=== PATIENT | female | born 1970 | race Caucasian/White ===

== ENCOUNTER → 2019-12-20 15:06 | Outpatient (BNVA) | payer OTHER, SELFPAY | PROVIDERS: PCP Family Medicine; Referring Provider Family Medicine; Visit Provider Internal Medicine Gastroenterology | DX: R10.13 Epigastric pain (principal) | CPT/HCPCS: 99213 ==

== ENCOUNTER 2020-01-11 08:23 | Outpatient (REF) | payer OTHER, SELFPAY ==
--- NOTE | 2020-01-11 08:29 | US_ITS ---
EXAMINATION: US ABDOMEN COMPLETE CLINICAL INFORMATION: Epigastric pain. COMPARISON: None TECHNIQUE: Real-time imaging of the abdominal viscera. Technically difficult study secondary to bowel gas. FINDINGS: PANCREAS: Obscured by bowel gas. ABDOMINAL AORTA: The proximal and distal segments are normal in caliber. Mid aorta is obscured by bowel gas. INFERIOR VENA CAVA: Visualized portions are normal. LIVER: Diffuse increased echogenicity. Coarsening of the echotexture. The liver is normal in size. The liver contour is normal. No focal hepatic lesion. There is no intrahepatic biliary duct dilatation seen. GALLBLADDER: Normal. The gallbladder is physiologically distended without evidence of stones, sludge, polyps, wall thickening or pericholecystic fluid. COMMON BILE DUCT: Normal in caliber measuring 0.6 cm in diameter. RIGHT KIDNEY: Normal. No hydronephrosis. No renal calculi or focal parenchymal lesions. The kidney measures 10.8 cm in maximum dimension. LEFT KIDNEY: Normal. No hydronephrosis. No renal calculi or focal parenchymal lesions. The kidney measures 10.7 cm in maximum dimension. SPLEEN: Normal. The spleen measures 10.3 cm in maximum dimension. FREE FLUID: None. US/US abdomen complete IMPRESSION: 1. There is generalized increase in hepatic echotexture, consistent with fatty infiltration or hepatocellular disease. Please correlate clinically. No focal hepatic mass or intrahepatic biliary duct dilatation is seen. 2. Pancreas is obscured by bowel gas.
== END 2020-01-11 08:24 | disposition home or self-care (01) ==
LOC: HO.US 08:23
PROVIDERS: PCP Family Medicine; Visit Provider Internal Medicine Gastroenterology
DX: R10.13 Epigastric pain (principal)
CPT/HCPCS: 76700

== ENCOUNTER 2020-02-08 11:29 | Day surgery (SDC) | payer OTHER, SELFPAY ==
[2020-02-03 10:11] VITALS: BMI 21.9
--- NOTE | 2020-02-07 09:52 | P.CONAN_ITS ---
Documented by User: Veronica Matute 02/07/20 09:53 HPI - Anesthesia Eval Consult details Narrative: 49yo F for Upper Endoscopy [facility] Past Medical History Medical History Hypothyroidism Family History Family History Father Hx of chronic pulmonary heart disease Mother No problems noted. Surgical History Surgical History History of colonoscopy Hx of endoscopy Social History Social History Alcohol intake: current Alcohol intake frequency: holidays/special occasions only Smoking Status: Never smoker Advance Directives: No Advance Directives Information Provided: Yes Advance Directives on File: No Meds Allergies Allergy/AdvReac Type Severity Reaction Status Date / Time No Known Allergies Allergy Verified 12/20/19 15:36 Home Medications Medication Instructions Recorded Confirmed Type levothyroxine 75 mcg tablet 75 mcg PO DAILY 12/20/19 02/03/20 History Exam Exam Date and Time: February 07, 2020 0952 Height,Weight and Vital Signs: Height 5 ft 8 in Weight 65.317 kg Assessment and Plan Assessment Anesthesia Assessment: Chart Reviewed Documented by User: Poonam Phillips CRNA 02/08/20 12:10 [facility] Past Medical History Medical History Hypothyroidism Family History Family History Father Hx of chronic pulmonary heart disease Mother No problems noted. Surgical History Surgical History History of colonoscopy Hx of endoscopy Social History Social History Alcohol intake: current Alcohol intake frequency: holidays/special occasions only Smoking Status: Never smoker Advance Directives: No Advance Directives Information Provided: Yes Advance Directives on File: No Meds Allergies Allergy/AdvReac Type Severity Reaction Status Date / Time No Known Allergies Allergy Verified 12/20/19 15:36 Home Medications Medication Instructions Recorded Confirmed Type levothyroxine 75 mcg tablet 75 mcg PO DAILY 12/20/19 02/03/20 History Exam Exam Date and Time: Vital Signs Temperature 97.6 F 02/08/20 12:01 Pulse Rate 46 L 02/08/20 12:01 Respiratory Rate 16 02/08/20 12:01 Blood Pressure 107/53 L 02/08/20 12:01 Pulse Oximetry 100 02/08/20 12:01 Temperature 97.6 F 02/08/20 12:01 Pulse Rate 46 L 02/08/20 12:01 Respiratory Rate 16 02/08/20 12:01 Blood Pressure 107/53 L 02/08/20 12:01 Pulse Oximetry 100 02/08/20 12:01 Airway Mallampati Class: I TM Dist: >3cm Neck ROM: Full Loose/Missing/Broken Teeth: No Heart: RRR Lungs: CTAB Assessment and Plan Assessment Anesthesia Assessment: Anesthesia Plan Discussed and Chart Reviewed Final Anesthetic Review NPO: Yes ASA Class: II Final Preanesthetic Review: No Changes in Pt Med Stat, Meds/Allgs Chart Reviewed, Consent Obtained/Reviewed and Anes Risks/Benef Reviewed Patient Risk: Low Procedure Risk: Low Anesthetic Plan Anesthetic Plan: MAC:
[2020-02-08 12:01] VITALS: BP 107/53; PULSE 46; RESP 16; TEMP 36.4; O2SAT 100
[2020-02-08] MEDS: Lactated Ringers 1,000 ML 100 ML IVCONT (12:03)
--- NOTE | 2020-02-08 12:13 | HO.ANESPROP2 ---
HPI - Anesthesia Eval Consult details Narrative: 49 yo female patient here for EGD [facility] Past Medical History Medical History Hypothyroidism Family History Family History Father Hx of chronic pulmonary heart disease Mother No problems noted. Family history of problems with anesthesia: No Surgical History Surgical History History of colonoscopy Hx of endoscopy History of Problems with Anesthesia: No (Pulse rate runs low) Social History Social History Alcohol intake: current Alcohol intake frequency: holidays/special occasions only Smoking Status: Never smoker Advance Directives: No Advance Directives Information Provided: Yes Advance Directives on File: No Meds Allergies Allergy/AdvReac Type Severity Reaction Status Date / Time No Known Allergies Allergy Verified 12/20/19 15:36 Home Medications Medication Instructions Recorded Confirmed Type levothyroxine 75 mcg tablet 75 mcg PO DAILY 12/20/19 02/03/20 History Exam Exam Date and Time: February 08, 2020 1213 Height,Weight and Vital Signs: Height 5 ft 8 in Weight 65.317 kg Last Vital Signs Temp 97.6 F 02/08/20 12:01 Pulse 46 L 02/08/20 12:01 Resp 16 02/08/20 12:01 BP 107/53 L 02/08/20 12:01 Pulse Ox 100 02/08/20 12:01 Airway Mallampati Class: I TM Dist: >3cm Neck ROM: Full Heart: RRR Lungs: CTAB Assessment and Plan Assessment Anesthesia Assessment: Anesthesia Plan Discussed and Chart Reviewed Final Anesthetic Review NPO: Yes ASA Class: II Final Preanesthetic Review: No Changes in Pt Med Stat, Meds/Allgs Chart Reviewed, Consent Obtained/Reviewed and Anes Risks/Benef Reviewed Patient Risk: Low Procedure Risk: Low Anesthetic Plan Anesthetic Plan: MAC: Disposition: Standard PACU
--- NOTE | 2020-02-08 12:26 | P.HPSUR_ITS ---
Pre-Procedural Eval Section B Chief Complaint: Epigastric Pain Relevant Family History (Specify if Yes): No Relevant Social History: None Present Medications: see Short Stay Collaborative assessment Medical History: Significant History (Hypothyroidism) History of Previous Operations: No relevant previous surgery Allergies: Allergies Allergy/AdvReac Type Severity Reaction Status Date / Time No Known Allergies Allergy Verified 12/20/19 15:36 Review of Systems Sugical H&P ROS: Negative: Constitution, Cardiovascular, Respiratory, Neurological, Psychiatric, Hem-Onc, Allergic/Immunologic, Gastrointestinal, Genitourinary, Musculoskeletal, Integumentary, Endocrine and Eyes/Ears/Nose/T hroat Exam Surgical H&P Exam: Normal: HEENT, Normal: Heart, Normal: Lungs, Normal: Extremities, Normal: Abdomen, Normal: Skin and Normal: Neurological Plan Diagnosis/Plan: Unchanged Patient has been examined and remains a candidate for the planned procedure
--- NOTE | 2020-02-08 12:26 | PM.OP ---
Brief Operative Note Date of Service: 02/08/20 Pre-op diagnosis: nausea, epigastric pain Post-op diagnosis: same Procedure: see op note Surgeon: Robina Sagastume MD Anesthesia: MAC Estimated blood loss (mL): 0 Condition: stable Disposition: PACU
--- NOTE | 2020-02-08 12:38 | W.PM.OPN ---
Operative Note Operative Note Date of Service: 02/08/20 Narrative: Procedure Description: EGD FLEXIBLE TRANSORAL UPPER GASTROINTESTINAL ENDOSCOPY UPPER ENDOSCOPY Consent: Indications for the procedure and potential complications of bleeding, perforation, reaction to medications and missed diagnosis were discussed with the patient and informed consent was obtained. Instrument: Olympus GIF H 190 J mid size upper endoscope Monitoring: Vital signs and clinical assessment, continuous EKG monitoring, Pulse oximetry, Carbon Dioxide monitoring and blood pressure monitoring were done throughout the procedure. Procedure: The patient was placed in the left lateral decubitis position and pre-procedure medications were administered and a bite block was placed. The endoscope was inserted into the mouth and advanced under direct vision to the third part of duodenum. A careful inspection was made as the upper endoscope was withdrawn including a retroflexed examination of the proximal stomach; Findings and interventions are described below. Findings: Larynx:normal Esophagus: GE junction at 40 cm, diaphragm hiatus at 40 cm, v slight erythema at GEJ, bx taken Stomach: Normal appearing mucosa. Biopsies were obtained. Grade 2 flap valve on retroflexed examination of the cardia. Duodenum: Normal bulb and descending duodenum, bx taken Intervention: Biopsies as noted above Impression/Findings: normal study PLAN: await bx results if neg then Gastric emptying study to r/o gastroparesis trial of FODMAP diet
[2020-02-08 12:45] VITALS: BP 89/40; PULSE 58; RESP 14; TEMP 36.4; O2SAT 100
[2020-02-08 13:00] VITALS: BP 82/53; PULSE 58; RESP 15; O2SAT 99
[2020-02-08 13:15] VITALS: BP 103/67; PULSE 52; RESP 16; TEMP 36.4; O2SAT 100
--- NOTE | 2020-02-08 13:51 | HO.POSTANES ---
Documented by User: Veronica Matute 02/08/20 13:51 Post Anesthesia Evaluation Post Anesthesia Evaluation Vital Signs: Vital Signs Temp Pulse Resp BP Pulse Ox 02/08/20 13:15 97.6 F 52 16 103/67 100 02/08/20 13:00 58 15 82/53 L 99 02/08/20 12:45 97.6 F 58 14 89/40 L 100 02/08/20 12:01 97.6 F 46 L 16 107/53 L 100 Anesthesia: Monitored Mental Status: Awake Pain Control: Satisfactory Nausea/Vomiting: None Hydration: Adequate Anesthesia-Related Issues: No Anes. Related Issues
== END 2020-02-08 14:00 | disposition home or self-care (01) ==
PROVIDERS: PCP Family Medicine; Visit Provider Internal Medicine Gastroenterology
PROC: 0DJ08ZZ Inspection of Upper Intestinal Tract, Via Natural or Artificial Opening Endoscopic (ICD-10-PCS; CPT 43235; principal; 2020-02-08 12:40)
DX: R10.13 Epigastric pain (principal); K20.90 Esophagitis, unspecified without bleeding
CPT/HCPCS: 43239; 88305; 88342

== ENCOUNTER → 2020-04-02 14:28 | Outpatient (BNVA) | payer OTHER, SELFPAY | PROVIDERS: PCP Family Medicine; Visit Provider Internal Medicine Gastroenterology | DX: R10.13 Epigastric pain (principal); K76.0 Fatty (change of) liver, not elsewhere classified | CPT/HCPCS: Q3014 ==

== ENCOUNTER 2020-11-27 09:55 | Outpatient (REF) | payer OTHER, SELFPAY ==
--- NOTE | ~2020-11-27 | US_ITS ---
EXAMINATION: US COMPLETE ABDOMEN WITH LIVER ELASTOGRAPHY CLINICAL INFORMATION: COMPARISON: None. TECHNIQUE: Real-time imaging of the abdominal viscera. Noninvasive ultrasound liver fibrosis assessment is performed using Emily ElastPQ point quantification shear wave elastography (pSWE) with a C5-2 MHz transducer. Multiple elastography samples are obtained. FINDINGS: PANCREAS: The body the pancreas is normal. The head and tail are not well visualized due to bowel gas. ABDOMINAL AORTA: The middle and distal aortic segments are normal in caliber. Proximal abdominal aorta is not well visualized. INFERIOR VENA CAVA: Visualized portions are normal. LIVER: Liver echotexture is increased. The liver is normal in size and contour. There is a 1.2 cm echogenic lesion in the right lobe of the liver. There is no biliary duct dilatation. The right lobe measures 12.5 cm in length. The left lobe measures 10 cm in length. Portal flow is normal/hepatopedal Shear wave liver elastography median stiffness is 1.4 m/s (reference: normal median stiffness is 1.3 m/s or less). IQR/median stiffness to assess sampling precision is 0.3 (reference: good quality data set is IQR/median stiffness of 0.15 or less). GALLBLADDER: Normal. The gallbladder is physiologically distended without evidence of stones, sludge, polyps, wall thickening or pericholecystic fluid. COMMON BILE DUCT: Normal in caliber measuring 0.4 cm in diameter. RIGHT KIDNEY: Normal. No hydronephrosis. No renal calculi or focal parenchymal lesions. The kidney measures 11 cm in maximum dimension. LEFT KIDNEY: Normal. No hydronephrosis. No renal calculi or focal parenchymal lesions. The kidney measures 11 cm in maximum dimension. SPLEEN: Normal. The spleen measures 10 cm in maximum dimension. FREE FLUID: None. US/US abdomen comp w elastography IMPRESSION: 1. Impression: Echogenic liver probably representing fatty infiltration. 1.2 cm hyperechoic lesion in the right lobe of the liver. This was not appreciated January 2020 exam. This may represent a hemangioma. Limited visualization of pancreas and aorta. 2. Liver elastography: Adequate liver sampling. In the absence of other known clinical signs, rules out compensated advanced chronic liver disease. REFERENCE: Society of Radiologists in Ultrasound Liver Stiffness Thresholds (2020): LIVER STIFFNESS THRESHOLDS: *Liver Stiffness equal or less than 1.3 m/s: High probability of being normal. *Liver Stiffness less than 1.7 m/s: In the absence of other known clinical signs, rules out compensated advanced chronic liver disease. *Liver Stiffness 1.7-2.1 m/s: Suggestive of compensated advanced chronic liver disease but need further test for confirmation. *Liver Stiffness over 2.1 m/s: Rules in compensated advanced chronic liver disease. *Liver Stiffness over 2.4 m/s: Suggestive of clinically significant portal hypertension. QUALITY OF DATA SET: *IQR/Median value equal or less than 0.15 implies a quality data set. *IQR/Median value over 0.15 implies a poor quality data set. SIGNIFICANT CHANGE FROM PRIOR EXAM: Significant change if liver stiffness measurement is 10% or greater from prior exam. OTHER CONSIDERATIONS: The stage of liver fibrosis may be overestimated in the setting of acute hepatitis, liver inflammation, elevated liver function tests, hepatic vascular congestion, obstructive cholestasis, non-fasting state, and infiltrative diseases such as amyloidosis and lymphoma. In some patients with NAFLD, the liver stiffness thresholds for compensated advanced chronic liver disease may be lower. In causes other than viral hepatitis and NAFLD, liver stiffness thresholds are not well established.
== END 2020-11-27 09:56 | disposition home or self-care (01) ==
LOC: HO.US 09:55
PROVIDERS: PCP Internal Medicine Cardiovascular Disease; Visit Provider Internal Medicine Gastroenterology
DX: K76.0 Fatty (change of) liver, not elsewhere classified (principal)
CPT/HCPCS: 76705; 76981

== ENCOUNTER 2021-01-07 13:36 | Outpatient (REF) | payer OTHER, SELFPAY ==
--- NOTE | ~2021-01-07 | MR_ITS ---
EXAMINATION: MR ABDOMEN WITHOUT AND WITH CONTRAST CLINICAL INFORMATION: Fatty liver. Follow up liver lesion. COMPARISON: Previous ultrasounds most recent October 2020. TECHNIQUE: MR abdomen was performed without and with use of 7 mL intravenous Gadavist gadolinium contrast. Postcontrast images are performed in multiphase dynamic sequences. Imaging was performed in 3 planes. FINDINGS: LUNG BASES: The visualized lung bases are unremarkable. LIVER, GALLBLADDER, AND BILIARY TREE: The liver is normal in size, smooth in contour, and normal in signal. The liver does not lose signal on out of phase sequences to suggest fatty infiltration. There are multiple small simple cysts seen in the liver. The largest measures 7 mm in the central liver near the junction of the anterior segment of the right lobe and medial segment of the left lobe for example axial image 8 on T2 series 4 and axial image 25 on postcontrast series. There is an 8 mm lesion in the central liver near the junction of the medial segment of the left lobe and anterior segment of the right lobe. This is low signal on T1-weighted sequences, high signal on T2-weighted sequences and demonstrates some peripheral enhancement. This is difficult to characterize due to small size but may correspond to lesion seen by ultrasound and represent a small hemangioma. There is a similar-appearing smaller 5 mm peripheral or subcapsular lesion in the anterior segment of the right lobe axial image 14 on T2 series 4 and axial image 43 postcontrast also difficult to characterize due to small size but may represent a small hemangioma. The gallbladder is unremarkable with no evidence of gallbladder wall thickening, or obvious pericholecystic inflammatory changes. PANCREAS: Unremarkable. SPLEEN: Normal. ADRENAL GLANDS: Normal. KIDNEYS AND URETERS: The kidneys are normal in size, shape, and enhance symmetrically. No hydronephrosis. No perinephric stranding. GASTROINTESTINAL TRACT: There is a large amount of stool in the colon suggestive of constipation. No ascites or fluid collection. ABDOMINAL WALL: No significant hernia is appreciated. LYMPH NODES: No lymphadenopathy. VASCULAR: Unremarkable. OSSEOUS STRUCTURES: Marrow signal normal. MR/MR abdomen wo/w con IMPRESSION: The liver is normal in signal without evidence of fatty infiltration. No evidence of cirrhosis. Innumerable small liver cysts. Two small less than 1 cm lesions in the liver are difficult to characterize due to small size but may represent small hemangiomas. No suspicious liver lesion seen. Constipation.
== END 2021-01-07 13:37 | disposition home or self-care (01) ==
LOC: HO.MRI 13:36
PROVIDERS: Visit Provider Internal Medicine Gastroenterology
DX: K76.0 Fatty (change of) liver, not elsewhere classified (principal)
CPT/HCPCS: 74183; A9585

== ENCOUNTER → 2021-02-19 12:07 | Outpatient (BNVA) | payer OTHER, SELFPAY | PROVIDERS: PCP Internal Medicine Cardiovascular Disease; Visit Provider Internal Medicine Gastroenterology ==